=== PATIENT | male | born 2000 | race Caucasian/White ===

== ENCOUNTER 2022-04-02 15:12 | Emergency (ER) | payer OTHER, SELFPAY ==
[2022-04-02 15:14] VITALS: BP 124/77; PULSE 120; RESP 16; TEMP 36.6; O2SAT 99; BMI 21.2
[2022-04-02] MEDS: DiphenhydrAMINE 12.5 MG/5 ML UDC 25 MG PO (16:46)
[2022-04-02] MEDS: Famotidine 20 MG Tablet PO (16:46)
[2022-04-02] MEDS: Ondansetron ODT 4 MG Tablet PO (16:46)
[2022-04-02 17:27] VITALS: O2SAT 98
--- NOTE | 2022-04-02 18:40 | EDS_ITS ---
HPI HPI - URI History of Present Illness Chief Complaint: Cold Sx Narrative Narrative: 22-year-old otherwise healthy male presenting with fever, chills, myalgias, nausea since Thursday. He was seen in urgent care and had a PCR COVID test which was negative. His influenza was negative. He was given a prescription for Tamiflu to cover him empirically since he was on the borderline of being within the window of taking Tamiflu for flu. His influenza came back negative. He was told to discontinue this if it was negative. He went back to the urgent care where they retested him for influenza and this was negative. They stated that since they did not have a source they recommended him go to the ER. They did do a chest x-ray. They checked a urinalysis as well. There were some small urine ketones but no evidence of infection. Patient states that he took Zofran which was prescribed to him at the urgent care this morning at about 7. It did help him. He was able to drink. It is now worn off and he is feeling nauseous again. He has not had a fever today. Patient does state that he developed a rash today and he noticed that when he was an x-ray at the urgent care. He is concerned he is on allergic reaction to Tamiflu. ROS ROS ED Constitutional Constitutional ED: Reports chills and fever(s) Eyes Eyes: Denies change in vision or diplopia ENT ENT ED: Reports rhinorrhea Cardiovascular Cardiovascular: Denies chest pain Respiratory/Chest Respiratory/Chest: Reports cough; Denies dyspnea Gastrointestinal Gastrointestinal: Reports nausea; Denies abdominal pain Genitourinary Genitourinary ED: Denies dysuria or hematuria Musculoskeletal Musculoskeletal: Reports myalgias Integumentary Denies abscess or Abrasions Neurologic Neurologic: Reports headache(s); Denies paresthesias or weakness Psychiatric Psychiatric: Denies anxiety or depression [facility] Home Medications Differin 10/29/13 [History Last Taken Unknown] amitriptyline 10 mg tablet 10 mg PO DAILY 10/29/13 [History Last Taken Unknown] famotidine 20 mg tablet 20 mg PO BID ##10 10/29/13 [Rx Last Taken Unknown] multivitamin with folic acid 400 mcg tablet (Thera) 1 tab PO DAILY 10/29/13 [History Last Taken Unknown] omeprazole 10 mg capsule,delayed release 10 mg PO DAILY 10/29/13 [History Last Taken Unknown] Allergy/AdvReac Type Severity Reaction Status Date / Time amoxicillin trihydrate Allergy Rash Verified 04/02/22 15:14 [From Augmentin] potassium clavulanate Allergy Rash Verified 04/02/22 15:14 [From Augmentin] sulfadiazine Allergy Rash Verified 04/02/22 15:14 Social History Smoking Status: Never smoker EXAM Physical Exam Const Vital Signs: 04/02/22 15:14 04/02/22 17:27 Temperature 98 F Temperature Source Temporal Pulse Rate 120 H Respiratory Rate 16 Blood Pressure 124/77 H Blood Pressure Mean 92 Pulse Ox 99 98 Oxygen Delivery Method Room Air Room Air Positive well nourished General Appearance ED: NAD HEENT Reports TM's clear, moist mucous membranes and dry mucous membranes normocephalic and atraumatic Tympanic Membrane ED: Yes TM's clear bilateral Mouth ED: Yes oral and palatal mucosa normal, Yes lips normal, Yes tongue normal, Yes salivary gland normal and Yes dry mucous membranes Mouth: oral and palatal mucosa normal, lips normal, tongue normal, salivary gland normal and dry mucous membranes Throat: posterior oropharynx normal Eyes PERRL and EOMs intact bilaterally Neck no lymphadenopathy, supple and no meningeal signs Resp normal respiratory effort Auscultation: Negative for rales, rhonchi or wheezes Cardio Rate: regular rate Rhythm: regular rhythm GI non-tender Extremity normal to inspection Neuro oriented x3 and CN's II-XII intact bilaterally Sensorium / Orientation: alert Motor Exam: strength 5/5 throughout Skin Skin Narrative: Maculopapular rash on the abdomen and extremities MDM MDM MDM Narrative Medical decision making narrative: Patient seen and evaluated for viral symptoms. He is already tested negative for COVID and influenza. He did take Tamiflu and states he started to develop a rash. This is a nonspecific maculopapular rash. Its not tender and he is stating it does itch a little bit. He was given Benadryl, Zofran. Since that time he has had 3 to 4 cups of water without difficulty. I did not retest him for COVID or influenza today. I recommended that he take Pepcid and Zofran at home. He can take Benadryl as needed for itching. His rash does look improved on reevaluation at 6:40 PM. He states he feels better. I recommend he follow- up with his PCP. Return precautions were discussed. He will discontinue Tamiflu. Impression: 1. Drug reaction 2. Viral syndrome. Lab Data Attestation: I reviewed the patient's lab results. Discharge Plan Triage Chief Complaint: Cold Sx ED Provider: Crispin Shabazz Dx/Rx/DC Orders Instructions: ED Viral Syndrome (Adult) Prescriptions: No Action omeprazole 10 MG capsule 10 mg PO DAILY amitriptyline 10 MG tablet 10 mg PO DAILY Label Comments: multivitamin with folic acid [Thera] 1 TABLET tablet 1 tab PO DAILY Differin famotidine 20 MG tablet 20 mg PO BID Qty: 10 0RF Primary Care Provider: Maritza Currie Referrals: Maritza Currie MD [Primary Care Provider] - Disposition Disposition: Home, Self Care
== END 2022-04-02 18:49 | disposition home or self-care (01) ==
PROVIDERS: Emergency Provider Student in an Organized Health Care Education/Training Program; PCP Pediatrics; Visit Provider Student in an Organized Health Care Education/Training Program
DX: B34.9 Viral infection, unspecified (principal); L27.1 Localized skin eruption due to drugs and medicaments taken internally; T37.5X5A Adverse effect of antiviral drugs, initial encounter
CPT/HCPCS: 99282